=== PATIENT | female | born 1990 | race Hispanic/Latino ===

== ENCOUNTER 2018-08-08 21:03 | Emergency (ER) | payer OTHER ==
[~2018-08-08] VITALS: Ht 165.1 cm; Wt 99.6 kg
[~2018-08-08 21:03] MED LIST: AMOXICILLIN500 M2 PO; AMOXICILLIN500 MG PO; CLARITHROMYC500 MG PO; DIPHEN/ATROP2.5 MG PO; FERR SULFATE325 MG PO; IBUPROFEN600 MG PO; IMODIUM A-D2 MG OR; LORTAB 7.5 PO; OMEPRAZOLE20 M2 PO; OMEPRAZOLE40 MG PO; PRE-NATAL PO; PRILOSEC20 MG PO; PRILOSEC40 MG PO; TRI SPRINTEC; TRI-SPRINTEC PO; ZOFRAN ODT4 MG PO
[2018-08-08] MEDS ORDERED: BIRTH CONTROL (21:13)
[2018-08-08 22:01] LABS: IMMATURE GRANULOCYTES 0.3 % (0.0-5.0); MEAN CORPUSCULAR HGB 29.5 pG CALC (26.0-32.0); MEAN CORPUSCULAR HGB CONC 32.5 g/L CALC (32.0-36.0); NEUT# 6.97 thou/uL (2.00-7.15); RED BLOOD COUNT 4.57 mill/uL (4.20-5.60); RED CELL DISTRI WIDTH 12.2 % (11.5-15.5)
[2018-08-08 22:03] LABS: HEMATOCRIT 41.6 % (37.0-47.0); HEMOGLOBIN 13.5 g/dl (12.0-16.0)
[2018-08-08 22:04] LABS: URINE BILIRUBIN - DIPSTICK NEGATIVE (NEGATIVE); URINE BLOOD DIPSTICK NEGATIVE (NEGATIVE); URINE COLOR YELLOW; URINE GLUCOSE - DIPSTICK NEGATIVE (NEGATIVE); URINE KETONE NEGATIVE (NEGATIVE); URINE LEUK ESTERASE NEGATIVE (NEGATIVE); URINE NITRITE - DIPSTICK NEGATIVE (Negative); URINE PROTEIN - DIPSTICK NEGATIVE (NEG-TRACE); URINE UROBILINOGEN - DIPSTICK 0.2 E.U./dL (0.2)
[2018-08-08 22:14] LABS: ALKALINE PHOSPHATASE 136 u/l (38-126); AMYLASE 37 u/l (30-110); BUN 10 mg/dL (7-17); BUN/CREATININE RATIO 15 (12-20 (CALC)); CHLORIDE 102 mmol/l (95-108); CREATININE 0.7 mg/dL (0.5-1.0); GFR > 60 ML/MIN (>=60 (CALC)); GFR FOR AFR.AMER. > 60 ML/MIN (>=60 (CALC)); LIPASE 43 u/l (23-300); POTASSIUM 3.9 mmol/l (3.5-5.1); SGOT/AST 15 u/l (14-36); SODIUM 139 mmol/l (137-146); TOTAL PROTEIN 7.7 g/dL (6.3-8.2)
[2018-08-08 22:15] LABS: ALBUMIN 4.3 g/dL (3.2-5.0); ANION GAP 16 (6-22 (CALC)); CARBON DIOXIDE 25 mmol/l (22-30)
[2018-08-08] MEDS ORDERED: PROTONIX40 MG PO (23:25)
[2018-08-08] MEDS ORDERED: ZOFRAN4 MG/TAB PO (23:25)
[2018-08-09 00:01] VITALS: BP 145/87
== END 2018-08-09 00:01 | disposition home or self-care (01) ==
LOC: ED 21:03
PROVIDERS: Emergency Medicine
DX: R10.12 Left upper quadrant pain (principal); R11.0 Nausea; R51 Headache
CPT/HCPCS: Q9967; S0164

== ENCOUNTER 2018-11-07 06:43 | Day surgery (SDC) | payer OTHER ==
[~2018-11-07] VITALS: Ht 165.1 cm; Wt 95.7 kg
[~2018-11-07 06:43] MED LIST changes: +BIRTH CONTROL; +PROTONIX40 MG PO; +TUMS500 MG PO; +ZOFRAN4 MG/TAB PO
[2018-11-07 08:55] VITALS: BP 109/65
== END 2018-11-07 09:03 | disposition home or self-care (01) ==
LOC: ENDO 06:43 → ORM 09:30 → ENDO 09:30
PROVIDERS: ATTEND Surgery
DX: K21.9 Gastro-esophageal reflux disease without esophagitis (principal); K29.70 Gastritis, unspecified, without bleeding; K31.9 Disease of stomach and duodenum, unspecified; Z86.19 Personal history of other infectious and parasitic diseases

== ENCOUNTER 2021-08-02 19:56 | Emergency (ER) | payer SELFPAY ==
[2021-08-02] VITALS (7 sets, daily range): BP systolic 96–128; BP diastolic 58–78
[~2021-08-02] VITALS: Ht 165.1 cm; Wt 100.0 kg
[2021-08-02 21:12] LABS: URINE BILIRUBIN - DIPSTICK NEGATIVE (NEGATIVE); URINE BLOOD DIPSTICK TRACE-INTACT (NEGATIVE); URINE COLOR YELLOW; URINE GLUCOSE - DIPSTICK NEGATIVE (NEGATIVE); URINE KETONE NEGATIVE (NEGATIVE); URINE LEUK ESTERASE NEGATIVE (NEGATIVE); URINE PROTEIN - DIPSTICK NEGATIVE (NEG-TRACE); URINE SPECIFIC GRAVITY 1.025; URINE UROBILINOGEN - DIPSTICK 0.2 E.U./dL (0.2)
[2021-08-02 21:21] LABS: URINE NITRITE - DIPSTICK NEGATIVE (Negative)
[2021-08-02 21:44] LABS: HEMATOCRIT 41.8 % (37.0-47.0); HEMOGLOBIN 13.6 g/dl (12.0-16.0); IMMATURE GRANULOCYTES 0.3 % (0.0-5.0); MEAN CELL VOLUME 94.6 fL CALC (80.0-100.0); MEAN CORPUSCULAR HGB 30.8 pG CALC (26.0-32.0); MEAN CORPUSCULAR HGB CONC 32.5 g/dL CAL (32.0-36.0); NEUT# 16.43 thou/uL (2.00-7.15); RED BLOOD COUNT 4.42 mill/uL (4.20-5.60)
[2021-08-02 22:16] LABS: ALBUMIN 4.1 g/dL (3.2-5.0); ALKALINE PHOSPHATASE 135 u/l (38-126); AMYLASE 49 u/l (30-110); ANION GAP 14 (6-22 (CALC)); BUN 13 mg/dL (7-17); BUN/CREATININE RATIO 15 (12-20 (CALC)); CARBON DIOXIDE 24 mmol/l (22-30); CHLORIDE 105 mmol/l (95-108); CREATININE 0.9 mg/dL (0.5-1.0); GFR > 60 ML/MIN (>=60 (CALC)); GFR FOR AFR.AMER. > 60 ML/MIN (>=60 (CALC)); LIPASE 29 u/l (23-300); POTASSIUM 3.8 mmol/l (3.5-5.1); SODIUM 139 mmol/l (137-146); TOTAL PROTEIN 7.5 g/dL (6.3-8.2)
[2021-08-02 22:17] LABS: BILIRUBIN, TOTAL 1.5 mg/dL (0.0-1.4); SGOT/AST 29 u/l (14-36)
[2021-08-03] VITALS: BP 111/72
[2021-08-03 00:15] VITALS: BP 105/72
[2021-08-03 00:30] VITALS: BP 96/70
[2021-08-03] MEDS ORDERED: BACTRIM DS1 TAB PO (00:31)
[2021-08-03] MEDS ORDERED: KEFLEX500 MG PO (00:31)
[2021-08-03] MEDS ORDERED: ZOFRAN4 MG/TAB PO (00:32)
[2021-08-03] MEDS ORDERED: TOBREX OPTH5 ML/BTL OU (00:32)
[2021-08-03 01:00] VITALS: BP 92/59
[2021-08-03 01:15] VITALS: BP 109/56
== END 2021-08-03 01:28 | disposition home or self-care (01) | DRG 690 ==
LOC: ED 19:56
DX: N39.0 Urinary tract infection, site not specified (principal); J34.0 Abscess, furuncle and carbuncle of nose; H10.9 Unspecified conjunctivitis; T36.8X6A Underdosing of other systemic antibiotics, initial encounter; Z91.128 Patient's intentional underdosing of medication regimen for other reason; Z20.822 Contact with and (suspected) exposure to COVID-19
CPT/HCPCS: Q9967